=== PATIENT | male | born 1995 | race Two or more races ===

== ENCOUNTER 2021-01-01 00:56 | Emergency (ER) | payer SELFPAY ==
[~2021-01-01] VITALS: Ht 180.3 cm; Wt 79.8 kg
[2021-01-01 00:56] VITALS: BP 123/69
[2021-01-01] MEDS ORDERED: PANTOPRAZOLE 40 MG TABLET.DR PO ONE (02:06)
[2021-01-01] MEDS ORDERED: LIDOCAINE VISCOUS 2% UD 15 ML UDC ONE (02:06)
[2021-01-01] MEDS ORDERED: MAG HYDROX/AL HYDROX/SIMETH 30 ML UDC ONE (02:06)
[2021-01-01] MEDS: PANTOPRAZOLE 40 MG TABLET.DR PO ONE (02:18)
[2021-01-01] MEDS: LIDOCAINE VISCOUS 2% UD 15 ML UDC MM ONE (02:18)
[2021-01-01] MEDS: MAG HYDROX/AL HYDROX/SIMETH 30 ML UDC PO ONE (02:18)
[2021-01-01] MEDS: DICYCLOMINE HCL 10 MG/5 ML UDC PO ONE (02:18)
[2021-01-01] MEDS ORDERED: OMEP40CA21 PO (02:45)
== END 2021-01-01 03:13 | disposition home or self-care (01) ==
LOC: ER 00:59
DX: R12 Heartburn (principal)

== ENCOUNTER 2021-04-30 20:45 | Emergency (ER) | payer SELFPAY ==
[~2021-04-30] VITALS: Ht 175.3 cm; Wt 81.6 kg
[~2021-04-30 20:45] MED LIST: OMEP40CA21 PO
[2021-04-30] MEDS ORDERED: LIDOCAINE VISCOUS 2% UD 15 ML UDC ONE (21:08)
[2021-04-30] MEDS ORDERED: MAG HYDROX/AL HYDROX/SIMETH 30 ML UDC ONE (21:08)
[2021-04-30] MEDS ORDERED: ONDANSETRON 4 MG TAB.RAPDIS ONE (21:08)
[2021-04-30 21:10] VITALS: BP 115/85
[2021-04-30] MEDS ORDERED: FAMOTIDINE/PF INJ 20 MG/2 ML VIAL IV ONE ×2 (21:19→21:30)
[2021-04-30] MEDS ORDERED: ONDANSETRON 4 MG TAB.RAPDIS SL ONE (21:30)
[2021-04-30] MEDS ORDERED: MAG HYDROX/AL HYDROX/SIMETH 30 ML UDC PO ONE (21:30)
[2021-04-30] MEDS ORDERED: LIDOCAINE VISCOUS 2% UD 15 ML UDC MM ONE (21:30)
[2021-04-30] MEDS ORDERED: IV NS 0.9% 1,000 ML BAG IV ONE (21:30)
[2021-04-30 21:33] LABS: BASOPHILS % (AUTO) 0.2 % (0.0-2.0); EOSINOPHILS % (AUTO) 2.1 % (0.0-6.0); HEMATOCRIT 48 % (39-51); HEMOGLOBIN 15.8 g/dL (13.5-17.5); LYMPHOCYTES # (AUTO) 0.5 K/uL (0.8-4.8); LYMPHOCYTES % (AUTO) 4.3 % (20.0-44.0); MEAN CORPUSCULAR HGB CONC 33 g/dl (31.0-36.0); MEAN CORPUSCULAR VOLUME 90 fL (80-96); MONOCYTES # (AUTO) 0.5 K/uL (0.1-1.30); MONOCYTES % (AUTO) 4.1 % (2.0-12.0); NEUTROPHILS # (AUTO) 10.3 K/uL (1.8-8.9); NEUTROPHILS % (AUTO) 89.3 % (43.0-81.0); PLATELET COUNT (AUTO) 225 K/uL (150-450); RED BLOOD CELL COUNT(AUTO) 5.31 MIL/uL (4.5-6.0); WHITE BLOOD COUNT (AUTO) 11.5 K/uL (4.3-11.0)
[2021-04-30 21:49] LABS: CALCIUM, SERUM 8.8 mg/dL (8.5-10.1)
[2021-04-30 21:54] LABS: ALBUMIN 4.2 g/dL (3.4-5.0); BILIRUBIN,DIRECT 0.1 mg/dL (0.0-0.2); BILIRUBIN,TOTAL 0.4 mg/dL (0.2-1.0); TOTAL PROTEIN, SERUM 7.3 g/dL (6.4-8.2)
[2021-04-30] MEDS ORDERED: OMEP40CA21 PO (22:08)
--- NOTE | 2021-04-30 22:17 | NUR ---
IV removed. Catheter intact and site benign. Pressure and 4x4 applied to site. No bleeding noted.
--- NOTE | 2021-04-30 22:17 | NUR ---
Patient discharged to home in stable condition. Written and verbal after care instructions given. Patient verbalizes understanding of instruction. IV removed. Catheter intact and site benign. Pressure and 4x4 applied to site. No bleeding noted.
== END 2021-04-30 22:20 | disposition home or self-care (01) ==
LOC: ER 21:06
DX: R12 Heartburn (principal); R11.2 Nausea with vomiting, unspecified
CPT/HCPCS: 36415; 80048; 80076; 83690; 85025; 93005; 96361; 96374; 99284; J3490; J7030; Q0162

== ENCOUNTER 2024-05-10 23:24 | Emergency (ER) | payer OTHER ==
[~2024-05-10] VITALS: Ht 175.3 cm; Wt 80.7 kg
[2024-05-11] MEDS ORDERED: IBUPROFEN 400 MG TABLET ONE (01:52)
[2024-05-11 02:00] VITALS: TEMP 97.9
[2024-05-11] MEDS: IBUPROFEN 400 MG TABLET PO ONE (02:00)
[2024-05-11] MEDS ORDERED: ERYT3.5O9 EACHEYE (02:58)
[2024-05-11 03:28] VITALS: BP 134/72; O2SAT 100
== END 2024-05-11 03:28 | disposition home or self-care (01) ==
LOC: ER 23:31
DX: J06.9 Acute upper respiratory infection, unspecified (principal); H10.9 Unspecified conjunctivitis; Z79.899 Other long term (current) drug therapy; Z20.822 Contact with and (suspected) exposure to COVID-19
CPT/HCPCS: 86403-TC; 87070-TC